=== PATIENT | female | born 1940 | race Caucasian/White ===

== ENCOUNTER 2019-06-21 11:47 | Outpatient (CLI) | payer MEDICARE | END 2019-06-21 23:59 | disposition home or self-care (01) | LOC: CARD DIAG 11:47 | PROVIDERS: ATTEND Family Medicine | DX: I47.0 Re-entry ventricular arrhythmia (principal) | CPT/HCPCS: 93306 ==

== ENCOUNTER 2019-09-11 09:24 | Day surgery (SDC) | payer MEDICARE ==
[2019-09-11] VITALS (11 sets, daily range): BP systolic 156–189; BP diastolic 75–107
[~2019-09-11] VITALS: Ht 171.4 cm; Wt 89.0 kg
[~2019-09-11 09:24] MED LIST: APIX5TAB3 PO; DOCUMENT DATE & TIME OF BETA-BLOCKER PO ONE; OMEP-50 PO; SOTA80TA73 PO; ceFAZolin 2gm in dextrose, iso 50 ML IV ONE; famotidine 20mg tablet PO ONE; ringers solution, lacted 1,000 ML IV SCH
[2019-09-11 10:57] LABS: PRE OP PARTIAL THROMB. TIME 25 SECONDS (22-32)
[2019-09-11] MEDS ORDERED: ceFAZolin 1000mg inj ONE ×2 (13:08→13:59)
[2019-09-11] MEDS ORDERED: BUPIVAcaine/PF 2.5 mg/ml (0.25%) 30ml vial ONE ×2 (13:09→13:38)
[2019-09-11] MEDS ORDERED: acetaminophen 1000 MG/100ml vial IV ONE (13:38)
[2019-09-11] MEDS ORDERED: BUPIVACAINE liposomal/PF 13.3 MG/ML vial IM ONE ×2 (13:38→13:44)
[2019-09-11] MEDS ORDERED: sevoflurane 250ml liquid IH ONE (13:38)
[2019-09-11] MEDS ORDERED: midazolam 2 mg/2 ml injection ONE (13:40)
[2019-09-11] MEDS ORDERED: fentaNYL /PF 50mcg/ml 5ml ampule ONE (13:40)
[2019-09-11] MEDS ORDERED: phenylephrine 10mg/ml inj. ONE (14:13)
[2019-09-11] MEDS ORDERED: rocuronium 10mg/ml inj IV ONE (14:13)
[2019-09-11] MEDS ORDERED: LIDOcaine 2% (20mg/ml) 5ml vial ONE (14:13)
[2019-09-11] MEDS ORDERED: propofol inj 20 ML IV ONE (14:13)
[2019-09-11] MEDS ORDERED: ePHEDrine 50MG/ML INJ. ONE (14:13)
[2019-09-11] MEDS ORDERED: ketorolac trometh. 30mg/ml inj. ONE (14:53)
[2019-09-11] MEDS ORDERED: dexamethasone sod phosphate 4mg/ml inj. ONE (14:53)
[2019-09-11] MEDS ORDERED: neostigmine methylsulfate 1 MG/ML 10ml vial ONE (14:54)
[2019-09-11] MEDS ORDERED: glycopyrrolate 0.2mg/ml inj ONE (14:54)
[2019-09-11] MEDS ORDERED: ondansetron/PF 4mg/2ml inj ONE (14:54)
--- NOTE | 2019-09-11 15:06 | NUR ---
RECEIVED FROM OR VIA BED ACCOMPANIED BY ANESTHESIOLOGIST DR THOMAS, REPORT GIVEN. 20 GAUGE PIV L WRIST PATENT AND RUNNING LR AT 100 ML/HR. BANDAIDS X5 ABD CDI. ABD SOFT, SKIN PINK AND WARM, PT DROWSY BUT AWAKENS EASILY, DENIES PAIN AT THIS TIME
--- NOTE | 2019-09-11 15:06 | NUR ---
DISREGARD [id number] CHARTING REGARDING F/C
[2019-09-11] MEDS ORDERED: ringers solution, lacted 1,000 ML IV SCH (15:07)
[2019-09-11] MEDS ORDERED: proCHLORperazine 10 MG/2 ml inj IV PRN (15:10)
[2019-09-11] MEDS ORDERED: labetalol 20mg/4ml (5mg/ml) syringe IV PRN (15:10)
[2019-09-11] MEDS ORDERED: meperidine/PF 25mg/ml syringe IV PRN ×3 (15:10)
[2019-09-11] MEDS ORDERED: ondansetron/PF 4mg/2ml inj IV PRN (15:10)
[2019-09-11] MEDS ORDERED: morphine 2 MG/ML inj. syringe IV PRN (15:10)
[2019-09-11] MEDS: morphine 4 MG/ML inj SYRINge IV PRN ×2 (15:18→15:41)
[2019-09-11] MEDS: hydrALAZINE 20mg/ml inj. IV PRN ×2 (15:49→16:16)
--- NOTE | 2019-09-11 16:44 | NUR ---
F/C DC/D CATH TIP INTACT. 20 GAUGE PIV L WRIST DC/D CATH TIP INTACT. BANDAIDS X5 ABD CDI. ABD SOFT, SKIN PINK AND WARM, P AWAKEN AND ALERT WITH LEVEL 4 PAIN AT THIS TIME. TOLERATING FLUIDS, DISCHARGE INSTRUCTIONS GIVEN VERBALIZED UNDERSTANDING. TRANSPORTED VIA WHEELCHAIR TO FAMILY IN PRIVATE VEHICLE TO HOME
--- NOTE | 2019-09-11 17:53 | NUR ---
F/C DRAINING CLEAR YELLOW FLUID
== END 2019-09-11 16:46 | disposition home or self-care (01) ==
LOC: PAS 09:24
PROVIDERS: ATTEND Surgery
DX: K42.9 Umbilical hernia without obstruction or gangrene (principal); I10 Essential (primary) hypertension; I48.91 Unspecified atrial fibrillation; K21.9 Gastro-esophageal reflux disease without esophagitis; G89.18 Other acute postprocedural pain; E66.9 Obesity, unspecified; Z68.30 Body mass index [BMI] 30.0-30.9, adult; Z79.899 Other long term (current) drug therapy; Z90.710 Acquired absence of both cervix and uterus; Z98.890 Other specified postprocedural states; Z79.82 Long term (current) use of aspirin; Z80.0 Family history of malignant neoplasm of digestive organs; Z11.59 Encounter for screening for other viral diseases
CPT/HCPCS: 36415; 49652; 64488; 71046; 82948; 85610; 85730; 87635; C1758; C1781; C9290; J0131; J0360; J0690; J1100; J1885; J2001; J2250; J2270; J2370; J2405; J2704; J2710; J3010; J3490; J7120; A4215; A4618

== ENCOUNTER 2022-04-21 14:41 | Outpatient (CLI) | payer MEDICARE ==
[~2022-04-21 14:41] MED LIST changes: -DOCUMENT DATE & TIME OF BETA-BLOCKER PO ONE; +NALO4SPR BOTHNARES; -OMEP-50 PO; +OMEP20CA16 PO; +OXYC-150 PO; -ceFAZolin 2gm in dextrose, iso 50 ML IV ONE; -famotidine 20mg tablet PO ONE; -ringers solution, lacted 1,000 ML IV SCH
== END 2022-04-21 23:59 | disposition home or self-care (01) ==
LOC: RAD 14:41
PROVIDERS: ATTEND Family Medicine
DX: M84.48XD Pathological fracture, other site, subsequent encounter for fracture with routine healing (principal); M47.817 Spondylosis without myelopathy or radiculopathy, lumbosacral region; M48.07 Spinal stenosis, lumbosacral region; M43.17 Spondylolisthesis, lumbosacral region; M51.27 Other intervertebral disc displacement, lumbosacral region; M12.88 Other specific arthropathies, not elsewhere classified, other specified site; X58.XXXD Exposure to other specified factors, subsequent encounter
CPT/HCPCS: 72148